=== PATIENT | male | born 1965 | race African-American/Black ===

== ENCOUNTER 2019-11-02 12:33 | Emergency (ER) | payer OTHER ==
[~2019-11-02] VITALS: Ht 182.9 cm; Wt 109.0 kg
[2019-11-02] MEDS ORDERED: IBUPROFEN 400MG TABLET PO ONE (13:00)
[2019-11-02 15:30] VITALS: BP 170/85
== END 2019-11-02 15:30 | disposition home or self-care (01) ==
LOC: ER 12:50
DX: S83.92XA Sprain of unspecified site of left knee, initial encounter (principal); E11.9 Type 2 diabetes mellitus without complications; I10 Essential (primary) hypertension; Z96.652 Presence of left artificial knee joint; V78.4XXA Person boarding or alighting from bus injured in noncollision transport accident, initial encounter; Y93.89 Activity, other specified; Y92.488 Other paved roadways as the place of occurrence of the external cause
CPT/HCPCS: 73562; 99283